=== PATIENT | male | born 1980 | race Caucasian/White ===

== ENCOUNTER 2021-09-18 14:08 | Outpatient (REF) | payer BC, SELFPAY ==
[2021-09-18 14:20] LABS: MANUAL DIFF FLAG NO
[2021-09-18 14:25] LABS: Basophils Absolute Auto 0.1 X10*3/uL (0.0-0.2); Basophils Percent Auto 0.8 % (0-2); Eosinophils Absolute Auto 0.1 X10*3/uL (0.0-0.4); Eosinophils Percent Auto 1.3 % (0-4); Hematocrit 48.1 % (42.0-52.0); Hemoglobin 16.1 g/dl (14.0-18.0); Imm Gran Abs Auto 0.02 X10*3/uL (0.00-0.03); Imm Gran Pct Auto 0.2 % (0.0-0.4); Lymphocytes Absolute Auto 2.6 X10*3/uL (1.2-4.9); Lymphocytes Percent Auto 30.1 % (20-40); Mean Corpuscular HGB Conc 33.5 g/dl (31.0-36.0); Mean Corpuscular Hemoglobin 28.9 pg (27.0-33.0); Mean Corpuscular Volume 86.2 fL (80.0-98.0); Mean Platelet Volume 10.7 fL (9.4-12.4); Monocytes Absolute Auto 0.6 X10*3/uL (0.1-1.2); Monocytes Percent Auto 7.3 % (2-11); Neutrophils Absolute Auto 5.3 x10*3/uL (2.0-8.3); Neutrophils Percent Auto 60.3 % (45-73); Platelet Count 250 X10*3/uL (160-400); Red Blood Count 5.58 X10*6/uL (4.60-5.80); Red Cell Distribution Width 12.7 % (11.0-16.0); White Blood Count 8.8 X10*3/uL (4.8-10.8)
[2021-09-18 14:28] LABS: Appearance Urine HAZY; Color Urine YELLOW; Glucose Urine UA >=1000 MG/DL (NEG); Leukocyte Esterase Urine NEG (NEG); Nitrite Urine NEG (NEG); PH 5.5 (5.0-8.0); Urine Blood NEG (NEG); Urine Ketones NEG (NEG); Urine Protein NEG (NEG-TRACE)
[2021-09-18 14:40] LABS: Alanine Aminotransferase 72 U/L (0-40); Albumin Level 4.6 g/dL (3.5-5.0); Alkaline Phosphatase 65 U/L (39-117); Anion Gap 17 (12-20); Aspartate Amino Transferase 45 U/L (5-37); Bilirubin Direct 0.4 mg/dL (0.0-0.5); Bilirubin Total 0.7 mg/dL (0.0-1.0); Blood Urea Nitrogen 12 mg/dL (9-16); Calcium 8.8 mg/dL (8.4-10.2); Carbon Dioxide 23 mmol/L (22-29); Chloride 105 mmol/L (96-108); Cholesterol 118 mg/dL; Creatinine Urine 120.83 mg/dL; Estimated Glomerular Filt Rate > 60; Glucose Random 126 mg/dL (60-115); HDL Cholesterol 38 mg/dL; LDL Cholesterol Calculated 54 mg/dl; Microalbum/Creatinine Ratio Ur 4.1 ug/mg cr; Potassium 3.9 mmol/L (3.3-5.1); Sodium 141 mmol/L (135-145); Total Protein 7.1 g/dL (6.5-8.0); Triglycerides 131 mg/dL
[2021-09-18 14:45] LABS: RBC Urine 0 /HPF (0); Squamous Epithelial Cell Urine 2+ /LPF; WBC Urine 0 /HPF (0-4)
[2021-09-18 14:57] LABS: Estimated Average Glucose 177 mg/dL; Hemoglobin A1c % 7.8 %
[2021-09-18 15:01] LABS: Prostate Specific Antigen 0.48 ng/mL (<0.05-4.0)
== END 2021-09-18 14:09 | disposition home or self-care (01) ==
LOC: HO.LNP 14:08
PROVIDERS: Visit Provider Internal Medicine
DX: Z00.00 Encounter for general adult medical examination without abnormal findings (principal); Z12.5 Encounter for screening for malignant neoplasm of prostate; E78.1 Pure hyperglyceridemia; R79.89 Other specified abnormal findings of blood chemistry; E78.6 Lipoprotein deficiency; E11.9 Type 2 diabetes mellitus without complications
CPT/HCPCS: 80053; 80061; 81001; 82043; 82248; 83036; 84153; 85025

== ENCOUNTER 2022-03-23 11:16 | Outpatient (REF) | payer BC, SELFPAY ==
[2022-03-23 12:05] LABS: Estimated Average Glucose 197 mg/dL; Hemoglobin A1c % 8.5 %
[2022-03-23 12:46] LABS: Alanine Aminotransferase 39 U/L (0-40); Albumin Level 4.5 g/dL (3.5-5.0); Alkaline Phosphatase 69 U/L (39-117); Aspartate Amino Transferase 34 U/L (5-37); Bilirubin Direct 0.2 mg/dL (0.0-0.5); Bilirubin Total 0.9 mg/dL (0.0-1.0); Cholesterol 146 mg/dL; Glucose Fasting 128 mg/dL (60-99); HDL Cholesterol 46 mg/dL; LDL Cholesterol Calculated 75 mg/dl; Total Protein 6.9 g/dL (6.5-8.0); Triglycerides 129 mg/dL
[2022-03-23 14:00] LABS: Reflex LDLD? No
== END 2022-03-23 11:17 | disposition home or self-care (01) ==
LOC: HO.LNP 11:16
PROVIDERS: Visit Provider Internal Medicine
DX: E11.9 Type 2 diabetes mellitus without complications (principal); E78.6 Lipoprotein deficiency
CPT/HCPCS: 80061; 80076; 82947; 83036

== ENCOUNTER 2022-09-30 10:44 | Outpatient (REF) | payer BC, SELFPAY ==
[2022-09-30 10:56] LABS: MANUAL DIFF FLAG NO
[2022-09-30 13:07] LABS: Basophils Absolute Auto 0.1 X10*3/uL (0.0-0.2); Basophils Percent Auto 1.1 % (0-2); Eosinophils Absolute Auto 0.1 X10*3/uL (0.0-0.4); Eosinophils Percent Auto 1.7 % (0-4); Hematocrit 46.6 % (42.0-52.0); Hemoglobin 15.7 g/dl (14.0-18.0); Imm Gran Abs Auto 0.02 X10*3/uL (0.00-0.03); Imm Gran Pct Auto 0.2 % (0.0-0.4); Lymphocytes Absolute Auto 2.8 X10*3/uL (1.2-4.9); Lymphocytes Percent Auto 34.4 % (20-40); Mean Corpuscular HGB Conc 33.7 g/dl (31.0-36.0); Mean Corpuscular Hemoglobin 28.9 pg (27.0-33.0); Mean Corpuscular Volume 85.7 fL (80.0-98.0); Mean Platelet Volume 10.3 fL (9.4-12.4); Monocytes Absolute Auto 0.5 X10*3/uL (0.1-1.2); Monocytes Percent Auto 6.4 % (2-11); Neutrophils Absolute Auto 4.5 x10*3/uL (2.0-8.3); Neutrophils Percent Auto 56.2 % (45-73); Platelet Count 250 X10*3/uL (160-400); Red Blood Count 5.44 X10*6/uL (4.60-5.80); Red Cell Distribution Width 12.7 % (11.0-16.0); White Blood Count 8.1 X10*3/uL (4.8-10.8)
[2022-09-30 13:40] LABS: Alanine Aminotransferase 32 U/L (0-40); Albumin Level 4.4 g/dL (3.5-5.0); Alkaline Phosphatase 65 U/L (39-117); Anion Gap 12 (12-20); Appearance Urine Clear; Aspartate Amino Transferase 22 U/L (5-37); Bilirubin Direct 0.2 mg/dL (0.0-0.5); Bilirubin Total 0.6 mg/dL (0.0-1.0); Blood Urea Nitrogen 10 mg/dL (9-16); Calcium 9.4 mg/dL (8.4-10.2); Carbon Dioxide 26 mmol/L (22-29); Chloride 106 mmol/L (96-108); Cholesterol 128 mg/dL (<200); Color Urine Yellow; Estimated Glomerular Filt Rate > 60; Glucose Fasting 131 mg/dL (60-99); Glucose Urine UA >=1000 mg/dL (Negative); HDL Cholesterol 42 mg/dL (>40); LDL Cholesterol Calculated 59 mg/dL (<100); Leukocyte Esterase Urine Negative (Negative); Nitrite Urine Negative (Negative); PH 5.5 (5.0-9.0); Potassium 3.9 mmol/L (3.3-5.1); Sodium 140 mmol/L (135-145); Specific Gravity - Urine >= 1.030 (1.005-1.025); Total Protein 7.4 g/dL (6.5-8.0); Triglycerides 139 mg/dL (<150); UMIC TRIGGER UACC YES; Urine Blood Negative (Negative); Urine Ketones Negative (Negative); Urine Protein Negative (Neg-Trace)
[2022-09-30 13:47] LABS: Bacteria Urine None Seen (None Seen); Estimated Average Glucose 169 mg/dL; Hemoglobin A1c % 7.5 % (<6.0); Hyaline Casts Urine 0-2 /LPF (0-2); RBC Urine 0-2 /HPF (0-2); Squamous Epithelial Cell Urine 0-2 /HPF (0-2); WBC Urine 0-5 /HPF (0-5)
[2022-09-30 15:12] LABS: Microalbumin Urine < 5.0 mg/L
== END 2022-09-30 10:45 | disposition home or self-care (01) ==
LOC: HO.LNP 10:44
PROVIDERS: Visit Provider Internal Medicine
DX: Z00.00 Encounter for general adult medical examination without abnormal findings (principal); E11.9 Type 2 diabetes mellitus without complications; E78.6 Lipoprotein deficiency; R79.89 Other specified abnormal findings of blood chemistry
CPT/HCPCS: 80053; 80061; 80076; 81001; 82043; 82248; 83036; 85025

== ENCOUNTER 2022-10-07 15:44 | Outpatient (REF) | payer BC, SELFPAY ==
[2022-10-07 16:56] LABS: PSA,Total (Free>4and<10) 0.61 ng/mL (0.00-4.00)
== END 2022-10-07 15:45 | disposition home or self-care (01) ==
LOC: HO.LNP 15:44
PROVIDERS: Visit Provider Internal Medicine
DX: Z00.00 Encounter for general adult medical examination without abnormal findings (principal); Z12.5 Encounter for screening for malignant neoplasm of prostate
CPT/HCPCS: 84153

== ENCOUNTER 2023-06-03 07:40 | Day surgery (SDC) | payer BC, SELFPAY ==
[2023-03-30 10:21] VITALS: BMI 27.9
--- NOTE | 2023-03-31 08:27 | HO.ANESPROP2 ---
HPI - Anesthesia Eval Consult details Narrative: 43yo M for Colonoscopy Anesthesia Pre-Procedure Meds Is the patient on any of the following meds?: Any other SGL-1 drugs or drugs that delay gastric emptying (DPP4) [facility] Past Medical History Medical History (Updated 03/30/23 @ 10:22 by Sandra Davis RN) Sleep apnea Elevated cholesterol Diabetes Surgical History Surgical History (Updated 03/30/23 @ 10:23 by Sandra Davis RN) History of esophagogastroduodenoscopy (EGD) Meds Allergies Allergy/AdvReac Type Severity Reaction Status Date / Time No Known Allergies Allergy Verified 03/30/23 10:16 Home Medications Medication Instructions Recorded Confirmed Last Taken Type atorvastatin 40 mg tablet 40 mg PO DAILY 03/30/23 03/30/23 Unknown History empagliflozin 25 mg-linagliptin 5 1 tab PO QAM 03/30/23 03/30/23 Unknown History mg tablet (Glyxambi) metformin 1,000 mg tablet 1,000 mg PO BID 03/30/23 03/30/23 Unknown History Exam Height,Weight and Vital Signs: Height 5 ft 9 in Weight 85.729 kg Assessment and Plan Assessment Anesthesia Assessment: Chart Reviewed
[2023-06-01 13:30] VITALS: BMI 27.9
--- NOTE | 2023-06-01 15:35 | HO.ANESPROP2 ---
Documented by User: Galilea Ordaz NP 06/01/23 15:35 HPI - Anesthesia Eval Consult details Narrative: 43yo M for Colonoscopy Anesthesia Pre-Procedure Meds Is the patient on any of the following meds?: Any other SGL-1 drugs or drugs that delay gastric emptying (SGLT-DPP4 combo) [facility] Past Medical History Medical History Sleep apnea Elevated cholesterol Diabetes Surgical History Surgical History History of esophagogastroduodenoscopy (EGD) Social History Social History Patient Tobacco Use Status: Never used Tobacco Use of substances other than those prescribed or required for medical reasons: No Are you DNR?: No Advance Directives: No Advance Directives Information Provided: Yes Meds Allergies Allergy/AdvReac Type Severity Reaction Status Date / Time No Known Allergies Allergy Verified 03/30/23 10:16 Home Medications ?Medication ?Instructions ?Recorded ?Confirmed ?Last Taken ?Type atorvastatin 40 mg tablet 40 mg PO DAILY 03/30/23 03/30/23 Unknown History empagliflozin 25 mg-linagliptin 5 1 tab PO QAM 03/30/23 03/30/23 Unknown History mg tablet (Glyxambi) metformin 1,000 mg tablet 1,000 mg PO BID 03/30/23 03/30/23 Unknown History Exam Height,Weight and Vital Signs: Height 5 ft 9 in Weight 85.729 kg Assessment and Plan Assessment Anesthesia Assessment: Chart Reviewed Documented by User: Radha oGnzalez MD 06/03/23 09:00 HPI - Anesthesia Eval Anesthesia Pre-Procedure Meds If Yes to any meds - educate patient: Pt education - increased risk of aspiration PMFSH Past Medical History Medical History Sleep apnea Elevated cholesterol Diabetes Surgical History Surgical History History of esophagogastroduodenoscopy (EGD) History of Problems with Anesthesia: No Social History Social History Patient Tobacco Use Status: Never used Tobacco Use of substances other than those prescribed or required for medical reasons: No Are you DNR?: No Advance Directives: No Advance Directives Information Provided: Yes Meds Allergies Allergy/AdvReac Type Severity Reaction Status Date / Time No Known Allergies Allergy Verified 03/30/23 10:16 Home Medications ?Medication ?Instructions ?Recorded ?Confirmed ?Last Taken ?Type atorvastatin 40 mg tablet 40 mg PO DAILY 03/30/23 03/30/23 Unknown History empagliflozin 25 mg-linagliptin 5 1 tab PO QAM 03/30/23 03/30/23 Unknown History mg tablet (Glyxambi) metformin 1,000 mg tablet 1,000 mg PO BID 03/30/23 03/30/23 Unknown History Exam Airway Mallampati Class: III TM Dist: >3cm Neck ROM: Full Loose/Missing/Broken Teeth: No Heart: RRR Lungs: CTA Assessment and Plan Assessment Anesthesia Assessment: Anesthesia Plan Discussed Final Anesthetic Review History of Problems with Anesthesia: No NPO: Yes ASA Class: II Final Preanesthetic Review: Meds/Allgs Chart Reviewed, Consent Obtained/Reviewed and Anes Risks/Benef Reviewed Patient Risk: Low Procedure Risk: Low Anesthetic Plan Anesthetic Plan: MAC: Disposition: Standard PACU
[2023-06-03 08:42] VITALS: BP 152/98; PULSE 88; RESP 18; TEMP 36.8; O2SAT 96; BMI 27.8
[2023-06-03 08:51] LABS: Glucose, Whole Blood 189 mg/dL (60-115)
[2023-06-03 09:16] VITALS: BP 152/98; PULSE 88; RESP 18; TEMP 36.7; O2SAT 96
[2023-06-03] MEDS: Lactated Ringers 1,000 ML 100 ML IVCONT (09:18)
--- NOTE | 2023-06-03 09:19 | MHC.SHP ---
Pre-Procedural Eval Section A - 24 Hr Update-Section A only Date of Service: 06/03/23 Section B - Complete if H&P > 30 days Chief Complaint: screening Details of Present Illness: see H&P no changes Relevant Family History (Specify if Yes): No Relevant Social History: None Present Medications: see Short Stay Collaborative assessment Medical History: No relevant PMH Allergies: Allergies Allergy/AdvReac Type Severity Reaction Status Date / Time No Known Allergies Allergy Verified 03/30/23 10:16 Review of Systems Sugical H&P ROS: Negative: Constitution, Cardiovascular, Respiratory, Neurological, Psychiatric, Hem-Onc, Allergic/Immunologic, Gastrointestinal, Genitourinary, Musculoskeletal, Integumentary, Endocrine and Eyes/Ears/Nose/Throat Exam Surgical H&P Exam: Normal: HEENT, Normal: Heart, Normal: Lungs, Normal: Extremities, Normal: Abdomen, Normal: Skin and Normal: Neurological Plan Diagnosis/Plan: Unchanged I have reviewed the history and physical and performed a pertinent physical examination on my patient. No changes have occurred unless specified. Time Spent With Patient Time: Total time managing care of this patient today ____ minutes.
[2023-06-03 09:50] VITALS: BP 104/71; PULSE 93; RESP 16; TEMP 36.6; O2SAT 97
[2023-06-03 10:05] VITALS: BP 128/86; PULSE 85; RESP 16; TEMP 36.6; O2SAT 97
--- NOTE | 2023-06-03 10:16 | OP_ITS ---
DATE OF SERVICE: 06/03/2023 SURGEON: Ralph Lopez MD INDICATIONS: Colon cancer screening. PREOPERATIVE DIAGNOSIS: POSTOPERATIVE DIAGNOSIS: PROCEDURE PERFORMED: Colonoscopy to the terminal ileum with snare polypectomy. ESTIMATED BLOOD LOSS: COMPLICATIONS: ANESTHESIA: Monitored anesthesia care. ASSISTANTS: SPECIMENS: DESCRIPTION OF PROCEDURE: A history and physical performed. The risks and benefits of the procedure were explained to the patient and informed consent was obtained. The patient placed in the left lateral decubitus position. A digital rectal exam was performed and was found to be normal. The Olympus pediatric video colonoscope was introduced into the rectum and advanced to the cecum. The cecum was identified by transillumination, palpation, and identification of ileocecal valve. Examination was performed. The scope was removed. He tolerated the procedure well and was taken to recovery area in stable condition. FINDINGS: The terminal ileum was examined and appeared normal. The visualized colonic mucosa was normal. The quality of the prep was good. In the right colon, there was an 8 mm sessile polyp, which was removed with a hot snare and recovered via suction. In the rectum, there was a less than 5 mm sessile polyp, which was removed with a biopsy forceps. No other polyps were identified. Retroflexed examination showed internal hemorrhoids. IMPRESSION: Colon polyps. RECOMMENDATION: Follow up the biopsy results. MD JOSEPHINE Iniguez/MODL / [id number]
== END 2023-06-03 10:16 | disposition home or self-care (01) ==
PROVIDERS: PCP Internal Medicine; Visit Provider Internal Medicine Gastroenterology
PROC: 0DJD8ZZ Inspection of Lower Intestinal Tract, Via Natural or Artificial Opening Endoscopic (ICD-10-PCS; CPT 45378; principal; 2023-06-03 09:50)
DX: Z12.11 Encounter for screening for malignant neoplasm of colon (principal); D12.2 Benign neoplasm of ascending colon; D12.8 Benign neoplasm of rectum; K64.8 Other hemorrhoids; G47.33 Obstructive sleep apnea (adult) (pediatric); E78.5 Hyperlipidemia, unspecified; E11.9 Type 2 diabetes mellitus without complications; Z79.84 Long term (current) use of oral hypoglycemic drugs; Z79.899 Other long term (current) drug therapy
CPT/HCPCS: 45385; 45380; 82947; 88305; J2250

== ENCOUNTER 2023-10-06 10:50 | Outpatient (REF) | payer BC, SELFPAY ==
[2023-10-06 10:55] LABS: MANUAL DIFF FLAG NO
[2023-10-06 11:04] LABS: Basophils Absolute Auto 0.1 X10*3/uL (0.0-0.2); Basophils Percent Auto 1.1 % (0-2); Eosinophils Absolute Auto 0.1 X10*3/uL (0.0-0.4); Eosinophils Percent Auto 1.2 % (0-4); Hemoglobin 15.8 g/dl (14.0-18.0); Imm Gran Abs Auto 0.03 X10*3/uL (0.00-0.03); Imm Gran Pct Auto 0.4 % (0.0-0.4); Lymphocytes Absolute Auto 2.6 X10*3/uL (1.2-4.9); Lymphocytes Percent Auto 30.3 % (20-40); Mean Corpuscular HGB Conc 33.6 g/dl (31.0-36.0); Mean Corpuscular Hemoglobin 28.9 pg (27.0-33.0); Mean Corpuscular Volume 85.9 fL (80.0-98.0); Mean Platelet Volume 10.4 fL (9.4-12.4); Monocytes Absolute Auto 0.7 X10*3/uL (0.1-1.2); Monocytes Percent Auto 8.2 % (2-11); Neutrophils Percent Auto 58.8 % (45-73); Platelet Count 240 X10*3/uL (160-400); Red Blood Count 5.47 X10*6/uL (4.60-5.80); Red Cell Distribution Width 12.8 % (11.0-16.0); White Blood Count 8.4 X10*3/uL (4.8-10.8)
[2023-10-06 11:05] LABS: Appearance Urine Clear; Color Urine Yellow; Glucose Urine UA >=1000 mg/dL (Negative); Leukocyte Esterase Urine Negative (Negative); Nitrite Urine Negative (Negative); Specific Gravity - Urine >= 1.030 (1.005-1.025); UMIC TRIGGER UACC YES; Urine Blood Negative (Negative); Urine Ketones Negative (Negative); Urine Protein Negative (Neg-Trace)
[2023-10-06 11:09] LABS: Bacteria Urine None Seen (None Seen); Hyaline Casts Urine 0-2 /LPF (0-2); RBC Urine 0-2 /HPF (0-2); Squamous Epithelial Cell Urine 0-2 /HPF (0-2); WBC Urine 0-5 /HPF (0-5)
[2023-10-06 11:18] LABS: Estimated Average Glucose 180 mg/dL; Hemoglobin A1c % 7.9 % (<6.0)
[2023-10-06 11:29] LABS: Alanine Aminotransferase 37 U/L (0-40); Albumin Level 4.7 g/dL (3.5-5.0); Alkaline Phosphatase 62 U/L (39-117); Anion Gap 12 (12-20); Aspartate Amino Transferase 28 U/L (5-37); Bilirubin Direct 0.2 mg/dL (0.0-0.5); Bilirubin Total 0.7 mg/dL (0.0-1.0); Blood Urea Nitrogen 13 mg/dL (9-16); Calcium 9.6 mg/dL (8.4-10.2); Carbon Dioxide 26 mmol/L (22-29); Chloride 105 mmol/L (96-108); Cholesterol 127 mg/dL (<200); Estimated Glomerular Filt Rate > 60; Glucose Fasting 138 mg/dL (60-99); HDL Cholesterol 40 mg/dL (>40); LDL Cholesterol Calculated 66 mg/dL (<100); Sodium 139 mmol/L (135-145); Total Protein 7.4 g/dL (6.5-8.0); Triglycerides 109 mg/dL (<150)
[2023-10-06 11:34] LABS: PSA,Total (Free>4and<10) 0.52 ng/mL (0.00-4.00)
[2023-10-06 12:05] LABS: Microalbumin Urine < 5.0 mg/L
== END 2023-10-06 10:51 | disposition home or self-care (01) ==
LOC: HO.LNP 10:50
PROVIDERS: Visit Provider Internal Medicine
DX: Z00.00 Encounter for general adult medical examination without abnormal findings (principal); E11.9 Type 2 diabetes mellitus without complications; R79.89 Other specified abnormal findings of blood chemistry; E78.2 Mixed hyperlipidemia; Z12.5 Encounter for screening for malignant neoplasm of prostate
CPT/HCPCS: 80053; 80061; 80076; 81001; 82043; 82248; 82570; 83036; 84153; 85025

== ENCOUNTER 2024-04-03 11:35 | Outpatient (REF) | payer BC, SELFPAY ==
[2024-04-03 12:33] LABS: Estimated Average Glucose 209 mg/dL; Hemoglobin A1C 309.2526 umol/L; Hemoglobin A1c % 8.9 % (<6.0); Total Hemoglobin (HGBA1C) 4178.6607 umol/L
[2024-04-03 13:06] LABS: Alanine Aminotransferase 54 U/L (0-40); Albumin Level 4.5 g/dL (3.5-5.0); Alkaline Phosphatase 70 U/L (39-117); Aspartate Amino Transferase 52 U/L (5-37); Bilirubin Direct 0.2 mg/dL (0.0-0.5); Bilirubin Total 0.8 mg/dL (0.0-1.0); Cholesterol 175 mg/dL (<200); Glucose Fasting 178 mg/dL (60-99); HDL Cholesterol 46 mg/dL (>40); LDL Cholesterol Calculated 90 mg/dL (<100); Total Protein 8.3 g/dL (6.5-8.0); Triglycerides 197 mg/dL (<150)
[2024-04-03 13:42] LABS: Reflex LDLD? No
--- OUTSIDE RECORDS SUMMARY | 2024-04-03 14:13 | XMS_ITS ---
Author Organization Ronni Harris MD Address [address] [place], [place] [id number] Care Team Providers Care Diploma Medical Assistant Name Role Phone Ronni Harris Primary Care Provider [phone] Results Component Value Reference Range Notes Complete Blood Count Auto Di ff Reviewed date:10/06/2023 05:09:45 PM Interpretation: Performing Lab:[facility], [address] [place] [phone] Notes/Report: White Blood Count 8.4 4.8-10.8 X10*3/uL Red Blood Count 5.47 4.60-5.80 X10*6/uL Hemoglobin 15.8 14.0-18.0 g/dl Hematocrit 47.0 42.0-52.0 % Mean Corpuscular Volume 85.9 80.0-98.0 fL Mean Corpuscular Hemoglobin 28.9 27.0-33.0 pg Mean Corpuscular HGB Conc 33.6 31.0-36.0 g/dl Red Cell Distribution Width 12.8 11.0-16.0 % Platelet Count 240 160-400 X10*3/uL Mean Platelet Volume 10.4 9.4-12.4 fL Neutrophils Percent Auto 58.8 45-73 % Imm Gran Pct Auto 0.4 0.0-0.4 % Lymphocytes Percent Auto 30.3 20-40 % Monocytes Percent Auto 8.2 2-11 % Eosinophils Percent Auto 1.2 0-4 % Basophils Percent Auto 1.1 0-2 % NRBC Pct Auto 0.0 0.0-0.2 /100WBC Neutrophils Absolute Auto 5.0 2.0-8.3 x10*3/u L Imm Gran Abs Auto 0.03 0.00-0.03 X10*3/uL Lymphocytes Absolute Auto 2.6 1.2-4.9 X10*3/u L Monocytes Absolute Auto 0.7 0.1-1.2 X10*3/uL Eosinophils Absolute Auto 0.1 0.0-0.4 X10*3/u L Basophils Absolute Auto 0.1 0.0-0.2 X10*3/uL NRBC Abs Auto 0.000 0.0-0.012 X10*3/uL [facility] [place]. Panel Fa st Reviewed date:10/06/2023 05:09:25 PM Interpretation: Performing Lab:[facility], [address] [place] [phone] Notes/Report: Sodium 139 135-145 mmol/L Potassium 4.0 3.3-5.1 mmol/L Chloride 105 96-108 mmol/L Carbon Dioxide 26 22-29 mmol/L Anion Gap 12 12-20 Blood Urea Nitrogen 13 9-16 mg/dL Creatinine 0.97 0.5-1.4 mg/dL Estimated Glomerular Filt Rate > 60 NOTE: For -Turkish individuals, multiply the result by 1.210. Chronic Kidney Disease: Estimated GFR < 60 mL/min/1.73m2 Severe Kidney Disease: Estimated GFR < 15 mL/min/1.73m2 Glucose Fasting 138 60-99 mg/dL A fasting glucose of 126 mg/dl or greater on more than one occasion is considered diagnostic of diabetes. Calcium 9.6 8.4-10.2 mg/dL Bilirubin Total 0.7 0.0-1.0 mg/dL Aspartate Amino Transferase 28 5-37 U/L Alanine Aminotransferase 37 0-40 U/L Total Protein 7.4 6.5-8.0 g/dL Albumin Level 4.7 3.5-5.0 g/dL Alkaline Phosphatase 62 39-117 U/L Liver Panel Reviewed date:10/06/2023 12:08:32 PM Interpretation: Performing Lab:[facility], [address] [place] [phone] Notes/Report: Bilirubin Direct 0.2 0.0-0.5 mg/dL Lipid Panel Reviewed date:10/06/2023 12:08:41 PM Interpretation: Performing Lab:[facility], [address] [place] [phone] Notes/Report: Triglycerides 109 <150 mg/dL Desirable Triglyceride: less than 150 mg/dL Borderline High Triglyceride 150-199 mg/dL High Triglyceride: 200-499 mg/dL Very High Triglyceride: greater than or equal to 5OO mg/dL Cholesterol 127 <200 mg/dL Desirable Cholesterol: less than 200 mg/dL Borderline High Cholesterol: 200-239 mg/dL High Cholesterol: greater than 239 mg/dL LDL Cholesterol Calculated 66 <100 mg/dL Desirable LDL: less than 100 mg/dL Near Optimal/Above Optimal LDL: 110-129 mg/dL Borderline High LDL: 130-159 mg/dL High LDL: 160-189 mg/dL Very High LDL: greater than or equal to 190 mg/dL HDL Cholesterol 40 >40 mg/dL Desirable HDL: greater than 40 mg/dL Note: This HDL assay may give artificially low results in patients with liver disease. PSA,Total (Free>4and<10) Reviewed date:10/06/2023 12:10:10 PM Interpretation: Performing Lab:[facility], [address] [place] [phone] Notes/Report: PSA,Total (Free>4and<10) 0.52 0.00-4.00 ng/mL A Free PSA was not performed: The percentage of Free PSA can be used to enhance the differentiation of prostate cancer from benign prostatic disease in subjects whose PSA levels are between 4.0 and 10.0 ng/mL. For subjects whose PSA levels are below 4.0 or above 10.0 ng/mL, the risk of prostate cancer is determined on the basis of the PSA alone. Therefore the % Free PSA is recommended only for those subjects whose PSA levels are between 4.0 and 10.0 ng/mL. PSA methodology: Redd Alinity i Chemiluminescent Microparticle Immunoassay (CMIA) Microalbumin, Random Reviewed date:10/06/2023 12:11:31 PM Interpretation: Performing Lab:[facility], [address] [place] [phone] Notes/Report: Creatinine Urine 86.80 Microalbumin Urine < 5.0 Microalbum/Creatinine Ratio Ur TNP <30 ug/mg cr Unable to calculate albumin/creatinine ratio due to low microalbumin or creatinine result. Hemoglobin A1c Reviewed date:10/06/2023 12:09:10 PM Interpretation: Performing Lab:[facility], [address] [place] [phone] Notes/Report: Hemoglobin A1c % 7.9 <6.0 % Hemoglobin A1C Reference Range Adults: 4.8 - 6.0 % Non diabetic: < 6.0 % Goal: < 7.0 % Additional Action Suggested: > 8.0 % Note: Hemoglobin A1c results are invalid for patients with abnormal amounts of HbF. Blood transfusions may impact the HbA1c concentration in the patient sample. Estimated Average Glucose 180 eAG = Estimated average glucose which is %A1C expressed as average glucose, using the formula of the [id number] Average Glucose study (ADAG), Diabetes Care, Vol.31,#8, Sep. 2007 UA ClnCatch+Micro w/rflx Cul t Reviewed date:10/07/2023 02:10:24 PM Interpretation: Performing Lab:[facility], [address] [place] [phone] Notes/Report: [id number] Urine, Clean Catch Color Urine Yellow Appearance Urine Clear PH 5.0 5.0-9.0 Glucose Urine UA >=1000 Negative mg/dL Urine Blood Negative Negative Specific [place] - Urine >= 1.030 1.005-1.025 Urine Protein Negative Neg-Trace mg/dL Urine Ketones Negative Negative mg/dL Nitrite Urine Negative Negative Leukocyte Esterase Urine Negative Negative RBC Urine 0-2 0-2 /HPF WBC Urine 0-5 0-5 /HPF Squamous Epithelial Cell Urine 0-2 0-2 /HPF Bacteria Urine None Seen None Seen Hyaline Casts Urine 0-2 0-2 /LPF REASON FOR VISIT yearly fasting labs Encounters Encounter Location Date Provider Diagnosis Ronni Harris MD [address] [place] [address] [address] [place], [place] [id number] 10/06/2023 Ronni Harris Blood tests for routine general physical examination Z00.00 ; Type 2 diabetes mellitus without complication E11.9 ; Elevated liver function tests R79.89 and Elevated triglycerides with high cholesterol E78.2 Assessments Encounter Date Diagnosis (ICD Code) Assessment Notes Treatment Notes Treatment Clinical Notes Section Notes 10/06/2023 Blood tests for routine general physical examination (ICD-10 - Z00.00) 10/06/2023 Type 2 diabetes mellitus without complication (ICD-10 - E11.9) 10/06/2023 Elevated liver function tests (ICD-10 - R79.89) 10/06/2023 Elevated triglycerides with high cholesterol (ICD-10 - E78.2) Plan Of Treatment Next Appt Details Provider Name:Ronni Carranza ier, 04/09/2024 01:45:00 PM, [address], [address], [place], [place], [phone], Provider Name:Ronni Carranza ier, 09/17/2024 07:45:00 AM, [address], [address], [place], [place], [phone], Provider Name:Ronni arroyor, 09/24/2024 02:30:00 PM, [address], [address], [place], [place], [phone], Progress Notes * Shay DONNELLY WDOB:[birth year] (44 yo M)Acc No.[id number]:10/06/2023 Progress Note Patient:?Shay DONNELLY W Provider:?Ronni Harris MD :1980???Age:43 Y???Sex:Male Fadi e:10/06/2023 Address:[facility] [id number] Subjective: * Chief Complaints: * ???1. Yearly fasting labs. * Medical History:? Objective: * Vitals:? Assessment: * Assessment: 1.?Blood tests for routine g eneral physical examination - Z00.00 (Primary)???2.?Type 2 diabetes mellitus without complication - E11.9???3.?Elevated liver function tests - R79.89???4.?Elevated triglycerides with high cholesterol - E78.2??? Plan: * Treatment: 2.?Type 2 diabetes mellitus without complication?LAB: Complete Blood Count Auto Diff (Collection Date & Time - 10/06/2023 07:15 AM) ?LAB: [facility] [place]. Panel Fast (Collection Date & Time - 10/06/2023 07:15 AM) ?LAB: Liver Panel (Collection Date & Time - 10/06/2023 07:15 AM) ?LAB: Lipid Panel (Collection Date & Time - 10/06/2023 07:15 AM) ?LAB: PSA,Total (Free>4and<10) (Collection Date & Time - 10/06/2023 07:15 AM) ?LAB: Microalbumin, Random (Collection Date & Time - 10/06/2023 07:15 AM) ?LAB: Hemoglobin A1c (Collection Date & Time - 10/06/2023 07:15 AM) ?LAB: UA ClnCatch+Micro w/rflx Cult (Collection Date & Time - 10/06/2023 07:15 AM) 3.?Elevated liver function t ests?LAB: Complete Blood Count Auto Diff (Collection Date & Time - 10/06/2023 07:15 AM) ?LAB: [facility] [place]. Panel Fast (Collection Date & Time - 10/06/2023 07:15 AM) ?LAB: Liver Panel (Collection Date & Time - 10/06/2023 07:15 AM) ?LAB: Lipid Panel (Collection Date & Time - 10/06/2023 07:15 AM) ?LAB: PSA,Total (Free>4and<10) (Collection Date & Time - 10/06/2023 07:15 AM) ?LAB: Microalbumin, Random (Collection Date & Time - 10/06/2023 07:15 AM) ?LAB: Hemoglobin A1c (Collection Date & Time - 10/06/2023 07:15 AM) ?LAB: UA ClnCatch+Micro w/rflx Cult (Collection Date & Time - 10/06/2023 07:15 AM) 4.?Elevated triglycerides wi th high cholesterol?LAB: Complete Blood Count Auto Diff (Collection Date & Time - 10/06/2023 07:15 AM) ?LAB: [facility] [place]. Panel Fast (Collection Date & Time - 10/06/2023 07:15 AM) ?LAB: Liver Panel (Collection Date & Time - 10/06/2023 07:15 AM) ?LAB: Lipid Panel (Collection Date & Time - 10/06/2023 07:15 AM) ?LAB: PSA,Total (Free>4and<10) (Collection Date & Time - 10/06/2023 07:15 AM) ?LAB: Microalbumin, Random (Collection Date & Time - 10/06/2023 07:15 AM) ?LAB: Hemoglobin A1c (Collection Date & Time - 10/06/2023 07:15 AM) ?LAB: UA ClnCatch+Micro w/rflx Cult (Collection Date & Time - 10/06/2023 07:15 AM) * Procedure Codes:?69821 VENIP UNCT, ROUTINE* * * The named appointment provid er may or may not be the originator of this progress note, and it is not deemed complete until electronically signed by the appointment provider. Sign off status: Pending * Provider:?Ronni Harris MD Date:?0 10/06/2023 Generated for Pieter carson/[place]/eTransmitting on:?04/03/2024 02:13 PM EST
--- OUTSIDE RECORDS SUMMARY | 2024-04-03 14:14 | XMS_ITS ---
Author Organization Ronni Harris MD Address [address] [place] [id number] Care Team Providers Care Housing Project Manager Name Role Phone Ronni Harirs Primary Care Provider [phone] Allergies No Known Allergies Results Component Value Reference Range Notes Occult Blood, Stool, Guaiac Reviewed date:10/11/2023 03:15:29 PM Interpretation:Negative Performing Lab: Notes/Report: Negative Occult Blood, Stool, Guaiac Neg REASON FOR VISIT annual visit Medications Medication SIG (Take, Route, Frequency, Duration) Notes Start Date End Date Status FreeStyle Anastasia 14 Day Sensor - as directed for 30 days 07/07/2021 Acti ve Valtrex 1 GM 1 tablet Orally 3 ti mes a day for 7 days 08/22/2023 Active Atorvastatin Calcium 40 MG TAKE 1 TABLET BY MOUTH EVERY DAY Active Glyxambi 25-5 MG TAKE 1 TABLET BY CARLOS TH EVERY MORNING Active metFORMIN HCl 1000 MG TAKE 1 TABLET BY M OUTH TWICE DAILY WITH MEALS Active Social History Tobacco Use: Social History Observation Description Date Details (start date - stop date) Never Smoker NA - NA Tobacco Use/Smoking Question Answer Notes Patient is a nonsmoker Additional Findings: Tobacco Non-User Cu rrent non-smoker, currently using no form of tobacco Alcohol Screen Question Answer Notes Did you have a drink contain ing alcohol in the past year? Yes How often did you have a dri nk containing alcohol in the past year? Monthly or less (1 point) How many drinks did you have on a typical day when you were drinking in the past year? 1 or 2 drinks (0 point) How often did you have 6 or more drinks on one occasion in the past year? Never (0 point) Points 1 Interpretation Negative Vital Signs Blood pressure systolic 110 mm Hg 10/11/19 24 Blood pressure diastolic 72 mm Hg 024 Height 68 in 10/11/2023 Weight 183 lbs 10/11/2023 BMI 27.82 kg/m2 10/11/2023 weight is down 7 pounds [facility] e 08-22-23 Encounters Encounter Location Date Provider Diagnosis Ronni Harris MD [address] [place], [place] [phone] 10/11/2023 Ronni Harris Type 2 diabetes mellitus without complication E11.9 ; Annual physical exam Z00.00 ; Elevated liver function tests R79.89 ; Elevated triglycerides with high cholesterol E78.2 ; Colon cancer screening Z12.11 and Depression screening Z13.31 Assessments Encounter Date Diagnosis (ICD Code) Assessment Notes Treatment Notes Treatment Clinical Notes Section Notes 10/11/2023 Type 2 diabetes mellitus without complication (ICD-10 - E11.9) doing well / a1c is improving, will continue current regiment and will continue to monitor 10/11/2023 Annual physical exam (ICD-10 - Z00.00) labs reviewed and discussed with patient 10/11/2023 Elevated liver function tests (ICD-10 - R79.89) has gotten better, will continue to monitor 10/11/2023 Elevated triglycerides with high cholesterol (ICD-10 - E78.2) 10/11/2023 Colon cancer screening (ICD-10 - Z12.11) guaiac negative 10/11/2023 Depression screening (ICD-10 - Z13.31) negative screen Plan Of Treatment Medication Medication Name Sig Start Date Stop Date Notes Atorvastatin Calcium 40 MG TAKE 1 TABLET BY MOUTH EVERY DAY Glyxambi 25-5 MG TAKE 1 TABLET BY CARLOS TH EVERY MORNING metFORMIN HCl 1000 MG TAKE 1 TABLET BY M OUTH TWICE DAILY WITH MEALS Treatment Notes Assessment Notes Type 2 diabetes mellitus wit hout complication doing well / a1c is improving, will continue current regiment and will continue to monitor Annual physical exam labs reviewed and d iscussed with patient Elevated liver function tests has gotten better, will continue to monitor Colon cancer screening guaiac negative Depression screening negative screen Next Appt Details Follow Up: 6 Months, Reason: dm Provider Name:Ronni shepard, 04/09/2024 01:45:00 PM, [address] [facility], [address], [place], [place], [phone], Provider Name:Ronni arroyor, 09/17/2024 07:45:00 AM, [address] [place] [address], [address], [place], [place], [phone], Provider Name:Ronni arroyor, 09/24/2024 02:30:00 PM, [address] [place] [address], Suite [facility], [place], [place], [phone], Progress Notes * Shay DONNELLY WDOB:[birth year] (43 yo M)Acc No.[id number]:10/11/2023 Progress Notes Patient:?Shay Donnelly W Provider:?Ronni Harris MD :1980???Age:43 Y???Sex:Male Fadi e:10/11/2023 Address:[facility] [id number] Subjective: * Chief Complaints: * ???Annual visit * HPI: ???Depression Screening:?PHQ-9?Little interest or pleasure in doing things?Not at all,?Feeling down, depressed, or hopeless?Not at all,?Trouble falling or staying asleep, or sleeping too much?Not at all,?Feeling tired or having little energy?Not at all,?Poor appetite or overeating?Not at all,?Feeling bad about yourself or that you are a failure, or have let yourself or your family down?Not at all,?Trouble concentrating on things, such as reading the newspaper or watching television?Not at all,?Moving or speaking so slowly that other people could have noticed; or the opposite, being so fidgety or restless that you have been moving around a lot more than usual?Not at all,?Thoughts that you would be better off or of hurting yourself in some way?Not at all,?Total Score?0.?Interpretation and Intervention?Depression Screening Findings?Negative,?Follow-Up for Depression?: review of PHQ-9 found negative result, no follow-up needed.?Communication Needs:?Communication Needs?Does the patient have a hearing impairment?No,?Does the patient have a vision impairment??Yes,?If yes, what is the vision impairment??Glasses,?Does the patient have a cognition impairment??No.?SDOH Questions:?SDOH Questions?In the past year have you been worried about losing housing??No,?In the past year have you or any family members you live with been unable to get any of the following when it was really needed? Check all that apply:?None.?Symptom(s):? pt is a 43 yo male here for yearly evaluation. * ROS:?General/Constitutional:?Change in appetite?denies.?Chills?denies.?Fever?denies.?Ophthalmologic:?Blurred vision?denies.?Discharge?denies.?Pain?denies.?ENT:?Decreased hearing?denies.?Sore throat?denies.?Swollen glands?denies.?Endocrine:?Cold intolerance?denies.?Excessive thirst?denies.?Heat intolerance?denies.?Weight loss?denies.?Respiratory:?Cough?denies.?Shortness of breath at rest?denies.?Shortness of breath with exertion?denies.?Wheezing?denies.?Cardiovascular:?Chest pain at rest?denies.?Chest pain with exertion?denies.?Irregular heartbeat?denies.?Shortness of breath?denies.?Gastrointestinal:?Abdominal pain?denies.?Change in bowel habits?denies.?Diarrhea?denies.?Nausea?denies.?Rectal bleeding?denies.?Vomiting?denies .?Genitourinary:?Blood in urine?denies.?Difficulty urinating?denies.?Frequent urination?denies.?Musculoskeletal:?Painful joints?denies.?Weakness?denies.?Skin:?Dry skin?denies.?Itching?denies.?Denies?Mole(s),? changes in moles, new moles or any lesions of concern.?Denies?Photosensitivity.?Rash?denies.?Neurologic:?Dizziness?denies.?Fainting?denies.?Headache?denies.? * Medical History:? * Surgical History:? * Hospitalization/Major Diagno stic Procedure:? * Family History:?Father: ashleigh e 58 yrs, type II diabetes, hypertension.?Mother: alive 57 yrs.?2 sister(s) - healthy. 1 daughter(s) . .? No pertinent family medical history, No pertinent family medical history, Denies mental health/substance abuse family history, Denies mental health/substance abuse family history, No pertinent family medical history. * Social History:?Tobacco Use:?Tobacco Use/Smoking?Patient is a?nonsmoker,?Additional Findings: Tobacco Non-User?Current non-smoker, currently using no form of tobacco.?Drugs/Alcohol:?Alcohol Screen?Did you have a drink containing alcohol in the past year??Yes,?How often did you have a drink containing alcohol in the past year??Monthly or less (1 point),?How many drinks did you have on a typical day when you were drinking in the past year??1 or 2 drinks (0 point),?How often did you have 6 or more drinks on one occasion in the past year??Never (0 point),?Points?1,?Interpretation?Negative.?Miscellaneous:?Caffeine: yes, frequency:, 1-2 cups per day. Children: yes. no Community involvements. no Exercise. Home smoke detector use: yes. Housing: renting. Living with: spouse. Marital status: . Occupation: works full-time. Pets: cats: dogs: 2 dogs. no Travel outside of the [place]. * Medications:?TakingFreeStyle Anastasia 14 Day Sensor - Miscellaneous as directed metFORMIN HCl 1000 MG Tablet TAKE 1 TABLET BY MOUTH TWICE DAILY WITH MEALS Atorvastatin Calcium 40 MG Tablet TAKE 1 TABLET BY MOUTH EVERY DAY Valtrex 1 GM Tablet 1 tablet Orally 3 times a dayGlyxambi 25-5 MG Tablet TAKE 1 TABLET BY MOUTH EVERY MORNING Medication List reviewed and reconciled with the patientTaking FreeStyle Anastasia 14 Day Sensor - Miscellaneous as directed Taking metFORMIN HCl 1000 MG Tablet TAKE 1 TABLET BY MOUTH TWICE DAILY WITH MEALS Taking Atorvastatin Calcium 40 MG Tablet TAKE 1 TABLET BY MOUTH EVERY DAY Taking Valtrex 1 GM Tablet 1 tablet Orally 3 times a dayTaking Glyxambi 25-5 MG Tablet TAKE 1 TABLET BY MOUTH EVERY MORNING Medication List reviewed and reconciled with the patient * Allergies:?N.K.D.A.yes[Aller gies Verified] Objective: * Vitals:?Ht: 68, Wt:183, BMI: 27.82, BP:110/72 weight is down 7 pounds since 08-22-23. * ???Past Orders: ???Lab:Liver Panel (Order 10/06/2023) (Collection Date - 10/06/2023) ? Value Reference Range ?Bilirubin Direct 0.2 0.0 -0.5 - mg/dL ???Lab:Lipid Panel (Order Da 10/06/2023) (Collection Date - 10/06/2023) ? Value Reference Range ?Triglycerides 109 <150 - mg/dL ?Cholesterol 127 <200 - m g/dL ?LDL Cholesterol Calculated 66 <100 - mg/dL ?HDL Cholesterol 40 L >40 - mg/dL ???Lab:PSA,Total (Free>4and< 10) (Order Date - 10/06/2023) (Collection Date - 10/06/2023) ? Value Reference Range ?PSA,Total (Free>4and<10) 0.52 0.00-4.00 - ng/mL ???Lab:Microalbumin, Random (Order Date - 10/06/2023) (Collection Date - 10/06/2023) ? Value Reference Range ?Creatinine Urine 86.80 - m g/dL ?Microalbumin Urine < 5.0 - mg/L ?Microalbum Creatinine Ratio Ur TNP <30 - ug/mg cr ???Lab:Hemoglobin A1c (Order Date - 10/06/2023) (Collection Date - 10/06/2023) ? Value Reference Range ?Hemoglobin A1c % 7.9 H <6. 0 - % ?Estimated Average Glucose 180 - mg/dL ???Lab:UA ClnCatch+Micro w/r flx Cult (Order Date - 10/06/2023) (Collection Date - 10/06/2023) ? Value Reference Range ?Color Urine Yellow - ?Appearance Urine Clear - ?PH 5.0 5.0-9.0 - ?Glucose Urine UA >=1000 A Neg ative - mg/dL ?Urine Blood Negative Negative - ?Specific Wilson - Urine >= 1.030 H 1.005-1.025 - ?Urine Protein Negative Neg-Tr irene - mg/dL ?Urine Ketones Negative Negati ve - mg/dL ?Nitrite Urine Negative Negati ve - ?Leukocyte Esterase Urine Negative Negative - ?RBC Urine 0-2 0-2 - /HPF ?WBC Urine 0-5 0-5 - /HPF ?Squamous Epithelial Cell Urine 0-2 0-2 - /HPF ?Bacteria Urine None Seen None Seen - ?Hyaline Casts Urine 0-2 0-2 - /LPF ???Lab:Complete Blood Count Auto Diff (Order Date - 10/06/2023) (Collection Date - 10/06/2023) ? Value Reference Range ?White Blood Count 8.4 4. 8-10.8 - X10*3/uL ?Red Blood Count 5.47 4.60 -5.80 - X10*6/uL ?Hemoglobin 15.8 14.0-18.0 - g/dl ?Hematocrit 47.0 42.0-52.0 - % ?Mean Corpuscular Volume 85.9 80.0-98.0 - fL ?Mean Corpuscular Hemoglobin 28.9 27.0-33.0 - pg ?Mean Corpuscular HGB Conc 33.6 31.0-36.0 - g/dl ?Red Cell Distribution Width 12.8 11.0-16.0 - % ?Platelet Count 240 160-4 00 - X10*3/uL ?Mean Platelet Volume 10.4 9.4-12.4 - fL ?Neutrophils Percent Auto 58.8 45-73 - % ?Imm Gran Pct Auto 0.4 0. 0-0.4 - % ?Lymphocytes Percent Auto 30.3 20-40 - % ?Monocytes Percent Auto 8.2 2-11 - % ?Eosinophils Percent Auto 1.2 0-4 - % ?Basophils Percent Auto 1.1 0-2 - % ?NRBC Pct Auto 0.0 0.0-0. 2 - /100WBC ?Neutrophils Absolute Auto 5.0 2.0-8.3 - x10*3/uL ?Imm Gran Abs Auto 0.03 0. 00-0.03 - X10*3/uL ?Lymphocytes Absolute Auto 2.6 1.2-4.9 - X10*3/uL ?Monocytes Absolute Auto 0.7 0.1-1.2 - X10*3/uL ?Eosinophils Absolute Auto 0.1 0.0-0.4 - X10*3/uL ?Basophils Absolute Auto 0.1 0.0-0.2 - X10*3/uL ?NRBC Abs Auto 0.000 0.0-0. 012 - X10*3/uL ???Lab:Comprehensive Boaz. P riri Fast (Order Date - 10/06/2023) (Collection Date - 10/06/2023) ? Value Reference Range ?Sodium 139 135-145 - mmo l/L ?Bilirubin Total 0.7 0.0- 1.0 - mg/dL ?Aspartate Amino Transferase 28 5-37 - U/L ?Alanine Aminotransferase 37 0-40 - U/L ?Total Protein 7.4 6.5-8. 0 - g/dL ?Albumin Level 4.7 3.5-5. 0 - g/dL ?Alkaline Phosphatase 62 39-117 - U/L ?Potassium 4.0 3.3-5.1 - mmol/L ?Chloride 105 96-108 - mm ol/L ?Carbon Dioxide 26 22-29 - mmol/L ?Anion Gap 12 12-20 - ?Blood Urea Nitrogen 13 9-16 - mg/dL ?Creatinine 0.97 0.5-1.4 - mg/dL ?Estimated Glomerular Filt Rate > 60 - ?Glucose Fasting 138 H 60-9 9 - mg/dL ?Calcium 9.6 8.4-10.2 - m g/dL * Examination: ???General Examination: ?GENERAL APPEARANCE:?well developed, well nourished, in no acute distress.?HEAD:?normocephalic, atraumatic.?EYES:?pupils equal, round, reactive to light and accommodation, sclera non-icteric.?EARS:?normal.?ORAL CAVITY:?mucosa moist.?THROAT:?clear.?NECK/THYROID:?neck supple, full range of motion, no cervical lymphadenopathy, no bruits.?SKIN:?warm and dry, no suspicious lesions.?HEART:?regular rate and rhythm, S1, S2 normal, no murmurs.?LUNGS:?clear to auscultation bilaterally.?ABDOMEN:?soft, nontender, nondistended, bowel sounds present, normal, no organomegaly , no masses palpable.?RECTAL EXAM:?normal tone, no external hemorrhoids, no masses palpable, prostate normal, stool guaiac negative.?MALE GENITOURINARY:? circumcised, no penile lesions or discharge, testes descended bilaterally, no testicular mass.?EXTREMITIES:?no clubbing, cyanosis, or edema.?NEUROLOGIC:?nonfocal, motor strength normal upper and lower extremities, sensory exam intact.?PODIATRIC:?normal pinprick, normal pulse, normal light touch.?FOOT EXAM:?.? Assessment: * Assessment: 1.?Annual physical exam - Z0 0.00 (Primary)?2.?Type 2 diabetes mellitus without complication - E11.9?3.?Elevated liver function tests - R79.89?4.?Elevated triglycerides with high cholesterol - E78.2?5.?Colon cancer screening - Z12.11?6.?Depression screening - Z13.31? Plan: * Treatment: 2.?Type 2 diabetes mellitus without complication? Continue metFORMIN HCl Tablet, 1000 MG, TAKE 1 TABLET BY MOUTH TWICE DAILY WITH MEALS;?Continue Glyxambi Tablet, 25-5 MG, TAKE 1 TABLET BY MOUTH EVERY MORNING.?? Notes: doing well / a1c is improving, will continue current regiment and will continue to monitor?? 3.?Elevated liver function t ests? Notes: has gotten better, will continue to monitor?? 4.?Elevated triglycerides wi th high cholesterol? Continue Atorvastatin Calcium Tablet, 40 MG, TAKE 1 TABLET BY MOUTH EVERY DAY.?? 5.?Colon cancer screening?LAB: Occult Blood, Stool, Guaiac?Negative ? Value Reference Range ?Occult Blood, Stool, Guaiac Neg Notes: guaiac negative??6.?Depression screening? Notes: negative screen?? * Procedure Codes:?91314 TEST FOR BLOOD, FECES * Preventive Medicine:? ??Counseling:?Care goal follow-up plan:?Counseling for abnormal BMI provided?Yes,?Above Normal BMI Follow-up?Giving encouragement to exercise.? ??Diabetes Care Plan:?Patient Lifestyle Goals?Needs to maintain diet control.?Treatment Goals?A1C< 7.?Barriers ?Needs better diet control.?Self- Managment Plan?Increase light exercise to 3 times a week for 30 minutes.? * Follow Up:?6 Months (Reason: dm) * * Sign off status: Completed true * Provider:?Ronni Harris MD Date:?0 10/11/2023 Generated for Pieter carson/Haleigh/eTfrancosmitting on:?04/03/2024 02:14 PM EST History and Physical Notes * HPI (History of Present Illness) Category Sub-Category Detail Notes Category Not es Symptom(s) pt is a 43 yo m nieves here for yearly evaluation Depression Screening PHQ-9 Little inte rest or pleasure in doing things: Not at all Feeling down, depressed, or hopeless: No t at all Trouble falling or staying asleep, or sl eeping too much: Not at all Feeling tired or having little energy: N ot at all Poor appetite or overeating: Not at all Feeling bad about yourself o r that you are a failure, or have let yourself or your family down: Not at all Trouble concentrating on thi ngs, such as reading the newspaper or watching television: Not at all Moving or speaking so slowly that other people could have noticed; or the opposite, being so fidgety or restless that you have been moving around a lot more than usual: Not at all Thoughts that you would be b amna off or of hurting yourself in some way: Not at all Total Score: 0 Interpretation and Intervention Depression Roge khan Findings: Negative Follow-Up for Depression: : review of PH Q-9 found negative result, no follow-up needed SDOH Questions SDOH Questions In the past year have you been worried about losing housing?: No In the past year have you or any family members you live with been unable to get any of the following when it was really needed? Check all that apply:: None Communication Needs Communication Needs Does the patient have a hearing impairment: No Does the patient have a vision impairmen t?: Yes ?If yes, what is the vision impairment?: Glasses Does the patient have a cognition impair ment?: No Examination Category Sub-Category Detail Notes Category Not es General Examination GENERAL APPEARANCE: well dev eloped, well nourished, in no acute distress HEAD: normocephalic, atrau matic EYES: pupils equal, round, reactive to light and accommodation, sclera non-icteric EARS: normal THROAT: clear NECK/THYROID: neck supple, full ra nge of motion, no cervical lymphadenopathy, no bruits HEART: regular rate and rhy thm, S1, S2 normal, no murmurs LUNGS: clear to auscultatio n bilaterally ABDOMEN: soft, nontender, non distended, bowel sounds present, normal, no organomegaly , no masses palpable NEUROLOGIC: nonfocal, motor stre ngth normal upper and lower extremities, sensory exam intact SKIN: warm and dry, no nina picious lesions EXTREMITIES: no clubbing, cyanosi s, or edema MALE GENITOURINARY: circumcised, no peni le lesions or discharge, testes descended bilaterally, no testicular mass RECTAL EXAM: normal tone, no exte rnal hemorrhoids, no masses palpable, prostate normal, stool guaiac negative ORAL CAVITY: mucosa moist FOOT EXAM: Date: 10/11/2023 normal pinprick . normal pulse. normal light touch. PODIATRIC: normal pinprick, nor mal pulse, normal light touch
--- OUTSIDE RECORDS SUMMARY | 2024-04-03 14:14 | XMS_ITS ---
Author Organization Ronni Harris MD Address [address] [place], [place] [phone] Care Team Providers Care Plane Tender Name Role Phone Ronni Harris Primary Care Provider [phone] Results Component Value Reference Range Notes Liver Panel (Not yet reviewe d by provider) Interpretation: Performing Lab:[facility], [address] [place] [phone] Notes/Report: Bilirubin Total 0.8 0.0-1.0 mg/dL Bilirubin Direct 0.2 0.0-0.5 mg/dL Aspartate Amino Transferase 52 5-37 U/L Mild Hemolysis.Interpret result with caution Alanine Aminotransferase 54 0-40 U/L Total Protein 8.3 6.5-8.0 g/dL Mild Hemolysis .Interpret result with caution Albumin Level 4.5 3.5-5.0 g/dL Alkaline Phosphatase 70 39-117 U/L Glucose Fasting (Not yet rev iewed by provider) Interpretation: Performing Lab:[address] [id number] Notes/Report: Glucose Fasting 178 60-99 mg/dL A fasting glucose of 126 mg/dl or greater on more than one occasion is considered diagnostic of diabetes. Lipid Panel with Reflex (Not yet reviewed by provider) Interpretation: Performing Lab:[facility], [address] [place] [phone] Notes/Report: Triglycerides 197 <150 mg/dL Desirable Triglyceride: less than 150 mg/dL Borderline High Triglyceride 150-199 mg/dL High Triglyceride: 200-499 mg/dL Very High Triglyceride: greater than or equal to 5OO mg/dL Cholesterol 175 <200 mg/dL Desirable Cholesterol: less than 200 mg/dL Borderline High Cholesterol: 200-239 mg/dL High Cholesterol: greater than 239 mg/dL LDL Cholesterol Calculated 90 <100 mg/dL Desirable LDL: less than 100 mg/dL Near Optimal/Above Optimal LDL: 110-129 mg/dL Borderline High LDL: 130-159 mg/dL High LDL: 160-189 mg/dL Very High LDL: greater than or equal to 190 mg/dL HDL Cholesterol 46 >40 mg/dL Desirable HDL: greater than 40 mg/dL Note: This HDL assay may give artificially low results in patients with liver disease. Hemoglobin A1c Reviewed date:04/03/2024 12:36:26 PM Interpretation: Performing Lab:[facility], [address] [place] [phone] Notes/Report: Hemoglobin A1c % 8.9 <6.0 % Hemoglobin A1C Reference Range Adults: 4.8 - 6.0 % Non diabetic: < 6.0 % Goal: < 7.0 % Additional Action Suggested: > 8.0 % Note: Hemoglobin A1c results are invalid for patients with abnormal amounts of HbF. Blood transfusions may impact the HbA1c concentration in the patient sample. Estimated Average Glucose 209 eAG = Estimated average glucose which is %A1C expressed as average glucose, using the formula of the [id number] Average Glucose study (ADAG), Diabetes Care, Vol.31,#8, Sep. 2007 REASON FOR VISIT fasting lipids Encounters Encounter Location Date Provider Diagnosis Ronni Harris MD [address] [place] [address] [address] [place], [place] [phone] 04/03/2024 Ronni Harris Type 2 diabetes mellitus without complication E11.9 and Elevated triglycerides with high cholesterol E78.2 Assessments Encounter Date Diagnosis (ICD Code) Assessment Notes Treatment Notes Treatment Clinical Notes Section Notes 04/03/2024 Type 2 diabetes mellitus without complication (ICD-10 - E11.9) 04/03/2024 Elevated triglycerides with high cholesterol (ICD-10 - E78.2) Plan Of Treatment Pending Test Test Name Order Date Liver Panel 04/03/2024 Glucose Fasting 04/03/2024 Lipid Panel with Reflex 04/03/2024 Next Appt Details Provider Name:Ronni Carranza ier, 04/09/2024 01:45:00 PM, [address], [address], [place], [phone], Provider Name:Ronni Carranza ier, 09/17/2024 07:45:00 AM, [address], [address], [place], [phone], Provider Name:Ronni Carranza ier, 09/24/2024 02:30:00 PM, [address], [address], [place], [phone], Progress Notes * Shay DONNELLY WDOB:[birth year] (44 yo M)Acc No.[id number]:04/03/2024 Progress Note Patient:?Shay DONNELLY W Provider:?Ronni Harris MD :1980???Age:44 Y???Sex:Male Fadi e:04/03/2024 Address:[address] [place], [place] [phone] Subjective: * Chief Complaints: * ???1. Fasting lipids. * Medical History:? Objective: * Vitals:? Assessment: * Assessment: 1.?Type 2 diabetes mellitus without complication - E11.9 (Primary)???2.?Elevated triglycerides with high cholesterol - E78.2??? Plan: * Treatment: 2.?Elevated triglycerides wi th high cholesterol?LAB: Liver Panel (Collection Date & Time - 04/03/2024 07:00 AM) ?LAB: Glucose Fasting (Collection Date & Time - 04/03/2024 07:00 AM) ?LAB: Lipid Panel with Reflex (Collection Date & Time - 04/03/2024 07:00 AM) ?LAB: Hemoglobin A1c (Collection Date & Time - 04/03/2024 07:00 AM) * Procedure Codes:?47572 VENIP UNCT, ROUTINE* * * The named appointment provid er may or may not be the originator of this progress note, and it is not deemed complete until electronically signed by the appointment provider. Sign off status: Pending * Provider:?Ronni Harris MD Date:?0 04/03/2024 Generated for Pieter carson/Haleigh/Dinesh on:?04/03/2024 02:13 PM EST
== END 2024-04-03 11:36 | disposition home or self-care (01) ==
LOC: HO.LNP 11:35
PROVIDERS: Visit Provider Internal Medicine
DX: E11.9 Type 2 diabetes mellitus without complications (principal); E78.2 Mixed hyperlipidemia
CPT/HCPCS: 80061; 80076; 82947; 83036

== ENCOUNTER 2024-09-14 11:10 | Outpatient (REF) | payer BC, SELFPAY ==
--- OUTSIDE RECORDS SUMMARY | 2023-04-01 06:10 | XMS_ITS ---
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 Screening. * Medical History: Objective: * Vitals: Assessment: Plan: * Treatment: * * The named appointment provid er may or may not be the originator of this progress note, and it is not deemed complete until electronically signed by the appointment provider. Sign off status: Pending * Provider: Georgina Lopez MD Date: 04/01/2023 Generated for Printi ng/Faxing/eTransmitting on: 09/14/2024 11:16 AM EDT
--- OUTSIDE RECORDS SUMMARY | 2024-09-14 03:45 | XMS_ITS ---
Author Organization Ronni Harris MD Address [address] [place] [address] [phone] Care Team Providers [facility] [employer] Name Role Phone Ronni Harris Primary Care Provider [phone] REASON FOR VISIT yearly fasting labs Encounters Encounter Location Date Provider Diagnosis Ronni Harris MD [address] [place] [address] [phone] 09/14/2024 Ronni Harris Blood tests for routine general physical examination Z00.00 ; Type 2 diabetes mellitus without complication E11.9 ; Elevated liver function tests R79.89 and Elevated triglycerides with high cholesterol E78.2 Assessments Encounter Date Diagnosis (ICD Code) Assessment Notes Treatment Notes Treatment Clinical Notes Section Notes 09/14/2024 Blood tests for routine general physical examination (ICD-10 - Z00.00) 09/14/2024 Type 2 diabetes mellitus without complication (ICD-10 - E11.9) 09/14/2024 Elevated liver function tests (ICD-10 - R79.89) 09/14/2024 Elevated triglycerides with high cholesterol (ICD-10 - E78.2) Plan Of Treatment Pending Test Test Name Order Date Complete Blood Count Auto Diff Comprehensive [place]. Panel Fast Lipid Panel 09/14/2024 PSA,Total (Free>4and<10) 09/14/2024 Microalbumin, Random 09/14/2024 Hemoglobin A1c 09/14/2024 UA ClnCatch+Micro w/rflx Cult 09/14/2024 Next Appt Details Provider Name:Ronni Carranza ier, 09/24/2024 02:30:00 PM, [address] [facility], [address], [place], [place], [phone], Progress Notes * Shay DONNELLY WDOB:[birth year] (44 yo M)Acc No.[id number]:09/14/2024 Progress Note Patient: Shay MOORE Provider: Taylor Harris MD :1980 A ge:44 Y S ex:Male Date:09/14/2024 Address:[id number] Subjective: * Chief Complaints: * 1 . Yearly fasting labs. * Medical History: Objective: * Vitals: Assessment: * Assessment: 1. B lood tests for routine general physical examination - Z00.00 (Primary) 2 .?Type 2 diabetes mellitus without complication - E11.9 3 . E levated liver function tests - R79.89 4 . E levated triglycerides with high cholesterol - E78.2 Plan: * Treatment: 2. T ype 2 diabetes mellitus without complication L AB: Complete Blood Count Auto Diff L AB: Comprehensive [place]. Panel Fast L AB: Lipid Panel L AB: PSA,Total (Free>4and<10) L AB: Microalbumin, Random L AB: Hemoglobin A1c L AB: UA ClnCatch+Micro w/rflx Cult 3. E levated liver function tests L AB: Complete Blood Count Auto Diff L AB: Comprehensive [place]. Panel Fast L AB: Lipid Panel L AB: PSA,Total (Free>4and<10) L AB: Microalbumin, Random L AB: Hemoglobin A1c L AB: UA ClnCatch+Micro w/rflx Cult 4. E levated triglycerides with high cholesterol L AB: Complete Blood Count Auto Diff L AB: Comprehensive [place]. Panel Fast L AB: Lipid Panel L AB: PSA,Total (Free>4and<10) L AB: Microalbumin, Random L AB: Hemoglobin A1c L AB: UA ClnCatch+Micro w/rflx Cult * Procedure Codes: 3 6415 VENIPUNCT, ROUTINE* * * The named appointment provid er may or may not be the originator of this progress note, and it is not deemed complete until electronically signed by the appointment provider. Sign off status: Pending * Provider: Taylor Harris MD Date: 0 09/14/2024 Generated for Pieter carson/Haleigh/Etienneitting on: 0 09/14/2024 11:15 AM EDT
[2024-09-14 11:14] LABS: MANUAL DIFF FLAG NO
[2024-09-14 12:18] LABS: Hematocrit 47.4 % (42.0-52.0); Hemoglobin 16.2 g/dl (14.0-18.0); Imm Gran Abs Auto 0.01 X10*3/uL (0.00-0.03); Imm Gran Pct Auto 0.1 % (0.0-0.4); Lymphocytes Absolute Auto 2.2 X10*3/uL (1.2-4.9); Mean Corpuscular HGB Conc 34.2 g/dl (31.0-36.0); Mean Corpuscular Hemoglobin 29.1 pg (27.0-33.0); Mean Corpuscular Volume 85.1 fL (80.0-98.0); NRBC Abs Auto 0.000 X10*3/uL (0.0-0.012); NRBC Pct Auto 0.0 /100WBC (0.0-0.2); Platelet Count 233 X10*3/uL (160-400); Red Blood Count 5.57 X10*6/uL (4.60-5.80); White Blood Count 6.7 X10*3/uL (4.8-10.8)
[2024-09-14 12:19] LABS: Appearance Urine Clear; Glucose Urine UA >=1000 mg/dL (Negative); PH 5.5 (5.0-9.0); Specific Gravity - Urine >= 1.030 (1.005-1.025); UMIC TRIGGER UACC YES
[2024-09-14 12:26] LABS: Hemoglobin A1C 197.6070 umol/L; Total Hemoglobin (HGBA1C) 4165.7024 umol/L
[2024-09-14 12:33] LABS: Alanine Aminotransferase 31 U/L (0-40); Albumin Level 4.9 g/dL (3.5-5.0); Alkaline Phosphatase 65 U/L (39-117); Anion Gap 16 (12-20); Aspartate Amino Transferase 33 U/L (5-37); Blood Urea Nitrogen 12 mg/dL (9-16); Calcium 9.3 mg/dL (8.4-10.2); Carbon Dioxide 26 mmol/L (22-29); Chloride 105 mmol/L (96-108); Cholesterol 131 mg/dL (<200); Estimated Glomerular Filt Rate > 60; HDL Cholesterol 39 mg/dL (>40); Potassium 4.6 mmol/L (3.3-5.1); Sodium 142 mmol/L (135-145); Total Protein 7.3 g/dL (6.5-8.0); Triglycerides 92 mg/dL (<150)
[2024-09-14 12:34] LABS: Microalbum/Creatinine Ratio Ur 3.0 ug/mg cr (<30)
[2024-09-14 12:49] LABS: PSA,Total (Free>4and<10) 0.60 ng/mL (0.00-4.00)
== END 2024-09-14 11:11 | disposition home or self-care (01) ==
LOC: HO.LNP 11:10
PROVIDERS: Visit Provider Internal Medicine
DX: Z00.00 Encounter for general adult medical examination without abnormal findings (principal); Z12.5 Encounter for screening for malignant neoplasm of prostate; E11.9 Type 2 diabetes mellitus without complications; E78.2 Mixed hyperlipidemia; R79.89 Other specified abnormal findings of blood chemistry
CPT/HCPCS: 80053; 80061; 81001; 82043; 82570; 83036; 84153; 85025